=== PATIENT | female | born 1955 | race Caucasian/White ===

== ENCOUNTER 2017-02-11 10:29 | Day surgery (SDC) | payer OTHER ==
[2017-02-11] MEDS ORDERED: LR 1,000 ML IV ONE (11:18)
--- NOTE | 2017-02-11 12:05 | PDGENHP ---
History & Physical Chief Complaint: fhx polyps History of Present Illness: colon for fhx. no sx's Pertinent Past, Social, Family History: no smoke since 1992, copd. alcohol rarely. daughtyer with polyps Relevant Physical Exam: cta s1s2, rrr +murmer, click form valve Cardiorespiratory Assessment: s1s2. CTA. +BS,s oft, nt. class 3 pt
--- NOTE | 2017-02-11 12:06 | PDANEPAE ---
ANE History of Present Illness Colonoscope ANE Past Medical History - Cardiovascular History Hx Hypertension: Yes Hx Arrhythmias: Yes Hx Chest Pain: No Hx Coronary Artery / Peripheral Vascular Disease: Yes Hx CHF / Valvular Disease: Yes Hx Palpitations: No Cardiovascular History Comment: afib with rvr. htn. carotid artery stenosis on MRI 2012. 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 aicd - Pulmonary History Hx COPD: Yes Hx Asthma/Reactive Airway Disease: No Hx Recent Upper Respiratory Infection: No Hx Oxygen in Use at Home: Yes O2 in Use at Home (L/minute): 2.5l cont 3l with excertion Hx Sleep Apnea: Yes Sleep Apnea Screening Result - Last Documented: Positive Pulmonary History Comment: trung positive- per pt- uses o2 only. nocturnal hypoxia. hx of right lung wedge resection 08/2015 - Neurologic History Hx Cerebrovascular Accident: Yes Hx Seizures: No Hx Dementia: No Neurologic History Comment: cva x3 last one in 1995 - Endocrine History Hx Diabetes: No Hypothyroid: No Hyperthyroid: No Obesity: no - Renal History Hx Renal Disorders: Yes Renal History Comment: ckd - Liver History Hx Hepatic Disorders: No - Neurological & Psychiatric Hx Hx Neurological and Psychiatric Disorders: Yes Neurological / Psychiatric History Comment: hx of depression - Cancer History Hx Cancer: Yes Cancer History Comment: breast cancer 2011- chemo and double mastectomy and reconstruction - Congenital Disorder History Hx Congenital Disorders: No - GI History GERD: moderate Hx Gastrointestinal Disorders: Yes Gastrointestinal History Comment: reflux - Other Health History Other Health History: wears reading glasses. bruises easily - Chronic Pain History Chronic Pain: No - Surgical History Prior Surgeries: hysterectomy. double mastectomy and reconstruction. right tka. aortic dissection s/p repair 2008. aortic valve replacement 2015. pacemaker placed 08/2015 ANE Review of Systems - Exercise capacity METS (RN): 3 METS - Pacemaker Pacemaker Type: Permanent Pacer/Defib Pacemaker [employer] Apprentice: Sencha Pacemaker Model: Valitude x4 Pacemaker Mode: DDDR Pacemaker Set Rate: 60 Date Pacemaker Last Checked: last couple months ANE Patient History - Allergies Allergies/Adverse Reactions: benazepril [From Lotensin] Allergy (Verified 02/05/17 15:18) Anaphylaxis codeine Allergy (Verified 02/05/17 15:18) Vomiting nitrofurantoin [From Macrobid] Allergy (Verified 02/05/17 15:18) Vomiting rosuvastatin [From Crestor] Allergy (Verified 02/05/17 15:18) Other-Enter Comments sulfamethoxazole Allergy (Verified 02/05/17 15:18) Vomiting - Home Medications Home Medications: ALBUTEROL SULFATE 02/05/17 [Last Taken Unknown] Atorvastatin Calcium 02/05/17 [Last Taken Unknown] Diltiazem 02/05/17 [Last Taken Unknown] FOLIC ACID 02/05/17 [Last Taken Unknown] Fluticasone Nasal 02/05/17 [Last Taken Unknown] IRON 02/05/17 [Last Taken Unknown] Lisinopril 02/05/17 [Last Taken Unknown] [place] Carbonate 02/05/17 [Last Taken Unknown] Metoprolol Succinate 02/05/17 [Last Taken Unknown] Pantoprazole Sodium 02/05/17 [Last Taken Unknown] Potassium 02/05/17 [Last Taken Unknown] Prevagen 02/05/17 [Last Taken Unknown] Quinine Sulfate 02/05/17 [Last Taken Unknown] Ranitidine HCl 02/05/17 [Last Taken Unknown] Symbicort 160-4.5 Mcg Inh (*) 02/05/17 [Last Taken Unknown] - NPO status NPO Since - Liquids (Date): 02/11/17 NPO Since - Liquids (Time): 05:00 NPO Since - Solids (Date): 02/10/17 NPO Since - Solids (Time): 12:00 - Smoking Hx Smoking Status: Former smoker - Family Anes Hx Family Anes Hx: none Family Hx Anesthesia Complications: none ANE Labs/Vital Signs - Vital Signs Blood Pressure: 144/94 Heart Rate: 75 Respiratory Rate: 12 O2 Sat (%): 95 Height: 157.48 cm Weight: 62.596 kg ANE Physical Exam - Airway Neck exam: decreased ROM Mallampati Score: Class 2 Mouth exam: small mouth opening - Pulmonary Pulmonary: no respiratory distress - Cardiovascular Cardiovascular: regular rate and rhythym - ASA Status ASA Status: IV ANE Anesthesia Plan Anesthesia Plan: GA with mask
[2017-02-11] MEDS ORDERED: PROPOFOL 200 MG/20 ML VIAL ONE ×2 (12:09)
[2017-02-11] MEDS ORDERED: NALOXONE HCL 0.4 MG/ML INJ IVP PRN (13:07)
[2017-02-11] MEDS ORDERED: METOCLOPRAMIDE 10 MG/2 ML VIAL IVP PRN (13:07)
[2017-02-11] MEDS ORDERED: LABETALOL HCL 50 MG/10 ML SYR IVP PRN (13:07)
[2017-02-11] MEDS ORDERED: ONDANSETRON 4 MG/2 ML VIAL IVP PRN (13:07)
[2017-02-11] MEDS ORDERED: LABETALOL HCL 5 MG/ML 20 ML MDV ONE (13:11)
[2017-02-11 13:45] VITALS: BP 139/68; RESP 16
[2017-02-11 13:56] VITALS: TEMP 98.6; O2SAT 94
[2017-02-11 14:22] VITALS: PULSE 74
--- NOTE | 2017-02-11 20:48 | GPN ---
[f rep st] PROCEDURE NOTE PROCEDURE: Colonoscopy and polypectomy. INDICATIONS FOR PROCEDURE: Family history of colon polyps in her daughter. This is a screening pro cedure. PREOPERATIVE DIAGNOSIS: Rule out polyps. POSTOPERATIVE DIAGNOSES: 1. 4 small polyps removed from the ascending colon and transverse colon measuring about 2-3 mm rona betzaida in total by cold biopsy in piecemeal fashion. 2. Left-sided diverticulosis. INFORMED CONSENT: I discussed with the patient regarding the procedure, alternatives, benefits, and risks including bleeding, perforation, infection, risk of medication. Informed consent was signed and witnessed. COMPLICATIONS: None immediate. MEDICATIONS: IV general as per Dr. Sainz. DESCRIPTION OF PROCEDURE: After adequate sedation, patient remained in left lateral decubitus posit ion. I performed a visual and digital anorectal examination. The video colonoscope was then insert ed via the anus and advanced under visualization to the cecum, identified by the ileocecal valve, co nfluence of teniae, and palpation. Retroflex examination was performed in the cecum. Upon withdraw al of the instrument, careful attention was paid to mucosal detail. The prep was very good. The pa tiedarryl had 2 small polyps in the proximal ascending colon, measuring about 2-3 mm. Both were sessile and removed in total by cold biopsy in piecemeal fashion. The patient also had another two 2-3 mm polyps in the transverse colon, also removed in total by cold biopsy piecemeal fashion. There was l eft-sided diverticulosis noted in sigmoid and descending colon. Retroflex examination did not revea l any masses. The endoscope was then completely withdrawn, confirming the above findings. The les ent tolerated the procedure well and transferred to recovery room in satisfactory condition. IMPRESSION: 1. Four small polyps removed as noted above, two in the ascending colon, two in the transverse colo n. 2. Left-sided diverticulosis. RECOMMENDATIONS: 1. Follow up pathology of polyps. If 3 or more polyps have cancer potential, then the interval beth uld be 3 years. If 0, 1, or 2 polyps have cancer potential, then the interval is 5 years. 2. High-fiber diet for diverticulosis. There is no need to avoid seeds or nuts. 3. Continue present medications. 4. Follow up with primary care physician as scheduled. Thank you for allowing me to participate in the patient's healthcare. Do not hesitate to call with any questions. Copy requested to: Brittani Faulkner /[id number]/MODL
== END 2017-02-11 14:17 | disposition home or self-care (01) ==
LOC: FSGY 10:29
PROVIDERS: ATTEND Internal Medicine Gastroenterology
PROC: 0DBL8ZX Excision of Transverse Colon, Via Natural or Artificial Opening Endoscopic, Diagnostic (ICD-10-PCS; principal; 2017-02-11 12:00)
PROC: 0DBK8ZX Excision of Ascending Colon, Via Natural or Artificial Opening Endoscopic, Diagnostic (ICD-10-PCS; principal; 2017-02-11 12:00)
DX: Z12.11 Encounter for screening for malignant neoplasm of colon (principal); D12.2 Benign neoplasm of ascending colon; D12.3 Benign neoplasm of transverse colon; Z83.71 Family history of colonic polyps; K57.31 Diverticulosis of large intestine without perforation or abscess with bleeding; K21.9 Gastro-esophageal reflux disease without esophagitis; I48.91 Unspecified atrial fibrillation; N18.3 Chronic kidney disease, stage 3 (moderate); I12.9 Hypertensive chronic kidney disease with stage 1 through stage 4 chronic kidney disease, or unspecified chronic kidney disease; F41.9 Anxiety disorder, unspecified; J44.9 Chronic obstructive pulmonary disease, unspecified; R01.1 Cardiac murmur, unspecified; I77.9 Disorder of arteries and arterioles, unspecified; Z95.2 Presence of prosthetic heart valve; Z86.73 Personal history of transient ischemic attack (TIA), and cerebral infarction without residual deficits; Z85.3 Personal history of malignant neoplasm of breast; Z95.0 Presence of cardiac pacemaker; Z99.81 Dependence on supplemental oxygen; Z90.13 Acquired absence of bilateral breasts and nipples
CPT/HCPCS: J2704; J3490